=== PATIENT | male | born 1985 | race Caucasian/White ===

== ENCOUNTER 2017-05-22 10:37 | Emergency (ER) | payer SELFPAY ==
[2017-05-22] MEDS ORDERED: CETIRIZINE HCL 10 MG TAB PO ONE (11:29)
[2017-05-22] MEDS ORDERED: predniSONE 20 MG TAB PO ONE (11:29)
--- NOTE | 2017-05-22 12:17 | ED.PDOC ---
History of Present Illness - General Chief Complaint: ENT Problem Stated Complaint: Swollen glands, sore throat, dry cough Time Seen by Provider: 05/22/17 11:29 Source: patient Exam Limitations: no limitations - History of Present Illness Initial Comments: The patient's 31-year-old male presenting to the emergency room secondary to symptoms of the last 8-10 hours of a feeling of swelling in the back of his throat along with some runny nose cough and congestion. The patient has had a difficult time over the last 2-3 weeks with his seasonal allergies. They have not been well controlled. Multiple members of his family have come down with a viral upper respiratory tract infection and it looks like he has as well. He does have some very mild swelling of his uvula. He has some mild hoarseness. He has not had any difficulty breathing. He does have a low-grade fever. No syncope or near-syncope. No chest pain. There is no pseudomembrane formation. Timing/Duration: unsure Severity: moderate Improving Factors: nothing Worsening Factors: nothing Associated Symptoms: cough, fever/chills, malaise Allergies/Adverse Reactions: Allergies NO KNOWN ALLERGY Allergy (Verified 05/22/17 11:21) Home Medications: Ambulatory Orders predniSONE [Prednisone] 20 mg PO DAILY #3 tab 05/22/17 Review of Systems - Review of Systems Constitutional: States: fever, malaise EENTM: States: nose congestion, throat pain Respiratory: States: cough Cardiology: States: no symptoms reported Gastrointestinal/Abdominal: States: no symptoms reported Genitourinary: States: no symptoms reported Musculoskeletal: States: no symptoms reported Skin: States: no symptoms reported Neurological: States: anxiety Endocrine: States: no symptoms reported All other Systems: No Change from Baseline Family Medical History - Family History Father Family History: No Known Living Status: Still Living Physical Exam - Physical Exam General Appearance: Alert, Anxious, No apparent distress Eye Exam: bilateral normal Ears, Nose, Throat: nasal congestion, pharyngeal erythema, other - mild swelling of the uvula Neck: non-tender, full range of motion, supple, normal inspection Respiratory: lungs clear, normal breath sounds, no respiratory distress, no accessory muscle use Cardiovascular/Chest: normal peripheral pulses, regular rate, rhythm, no edema Peripheral Pulses: radial,right: 2+, radial,left: 2+, dorsalis pedis,right: 2+, dorsalis pedis,left: 2+ Gastrointestinal/Abdominal: non tender, soft Rectal Exam: deferred Back Exam: normal inspection Extremity: normal range of motion, non-tender, no pedal edema, no calf tenderness, normal capillary refill 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 This has caused some mild edema of his uvula. no respiratory distress is present. The patient received a dose of prednisone and Zyrtec here. He needs to take Zyrtec nightly for the next 2 weeks. He will be written for prednisone 20 mg daily for the next 3 days. ER warnings were given for any worsening. He has tested negative for strep and flu here today. He needs to keep himself well hydrated. He should follow-up with his primary care doctor towards the end of the week otherwise. Vital Signs - 8 hr 05/22/17 11:18 Temperature 98.0 F Pulse Rate [ 97 H Right Radial] Respiratory 20 Rate Blood Pressure 124/89 [Right Arm] O2 Sat by Pulse 96 Oximetry Departure - Departure Clinical Impression: Viral upper respiratory infection, Uvular edema Allergic rhinitis Qualifiers: Chronicity: acute Allergic rhinitis trigger: unspecified Allergic rhinitis seasonality: seasonal Qualified Code(s): J30.2 - Other seasonal allergic rhinitis Disposition: Discharge to Home or Self Care Departure Forms: ED Discharge - Pt. Copy, Patient Portal Self Enrollment Instructions: DI for Viral Upper Respiratory Infection -- Adult Diet: regular diet Activity: increase activity as tolerated Prescriptions: predniSONE [Prednisone] 20 mg PO DAILY #3 tab Home Medications: Ambulatory Orders predniSONE [Prednisone] 20 mg PO DAILY #3 tab 05/22/17 Additional Instructions: the patient a 31-year-old male presenting to the emergency room with what appears to be a viral upper respiratory tract infection on top of his seasonal allergies. This has caused some mild edema of his uvula. no respiratory distress is present. The patient received a dose of prednisone and Zyrtec here. He needs to take Zyrtec nightly for the next 2 weeks. He will be written for prednisone 20 mg daily for the next 3 days. ER warnings were given for any worsening. He has tested negative for strep and flu here today. He needs to keep himself well hydrated. He should follow-up with his primary care doctor towards the end of the week otherwise.
[2017-05-22 13:16] VITALS: BP 126/81; TEMP 98.3; O2SAT 95
== END 2017-05-22 12:30 | disposition home or self-care (01) ==
LOC: ER 10:37
DX: J06.9 Acute upper respiratory infection, unspecified (principal); J30.2 Other seasonal allergic rhinitis; R60.0 Localized edema
CPT/HCPCS: 87070; 87502; 87651; J7512

== ENCOUNTER 2018-03-12 22:21 | Emergency (ER) | payer SELFPAY ==
[2018-03-12 22:44] VITALS: TEMP 98.8
[2018-03-12] MEDS ORDERED: ACETAMINOPHEN-CAFF-BUTALBITAL 1 EA TAB PO ONE (22:46)
[2018-03-12] MEDS ORDERED: predniSONE 20 MG TAB PO ONE (22:46)
--- NOTE | 2018-03-12 22:49 | ED.PDOC ---
History of Present Illness - General Chief Complaint: Lower Extremity Injury Stated Complaint: right leg swollen Time Seen by Provider: 03/12/18 22:39 Source: patient Exam Limitations: no limitations - History of Present Illness Initial Comments: the patient is a 32-year-old male presenting to emergency room secondary to right knee pain with some locking over the last week. Pain is medial. He does have tenderness to palpation over the anterior tibia medially. No obvious bruising. No definite anterior drawer sign. No anserine bursitis. He is neurovascularly intact distally but does have some swelling mildly distally. There is on obvious palpable swelling of theknee joint sac. Timing/Duration: 1 week Severity: moderate Improving Factors: nothing Worsening Factors: movement Associated Symptoms: denies symptoms Allergies/Adverse Reactions: Allergies NO KNOWN ALLERGY Allergy (Verified 05/22/17 11:21) Home Medications: Ambulatory Orders predniSONE [Prednisone] 20 mg PO DAILY #3 tab 05/22/17 Review of Systems - Review of Systems Constitutional: States: no symptoms reported EENTM: States: no symptoms reported Respiratory: States: no symptoms reported Cardiology: States: no symptoms reported Gastrointestinal/Abdominal: States: no symptoms reported Genitourinary: States: no symptoms reported Musculoskeletal: States: see HPI Skin: States: no symptoms reported Neurological: States: no symptoms reported Endocrine: States: no symptoms reported All other Systems: No Change from Baseline Past Medical History (General) - Patient Medical History Hx Seizures: No Hx Stroke: No Hx Dementia: No Hx Asthma: No Hx of COPD: No Hx Cardiac Disorders: No Hx Congestive Heart Failure: No Hx Pacemaker: No Hx Hypertension: No Hx Thyroid Disease: No Hx Diabetes: No Hx Gastroesophageal Reflux: No Hx Renal Disease: No Hx Cancer: No Hx of HIV: No Hx Hepatitis C: No Hx MRSA: No Surgical History: other - Vaccination History Hx Tetanus, Diphtheria Vaccination: Yes Hx Influenza Vaccination: No Hx Pneumococcal Vaccination: No Immunizations Up to Date: No - Social History Hx Tobacco Use: Yes Hx Chewing Tobacco Use: No Hx Alcohol Use: No Hx Substance Use: No Hx Substance Use Treatment: No Hx Depression: No Feels Threatened In Home Enviroment: No Feels Threatened In a Relationship: No Hx Physical Abuse: No Hx Emotional Abuse: No Hx Suspected Abuse: No - Female History Patient is a Female of Child Bearing Age (10 -59 yrs old): No - Triage Comment ED Triage Comment: unable to bend or use leg due to pain, non swelling edmea noted from knee down to foot Family Medical History - Family History Father Family History: No Known Living Status: Still Living Physical Exam - Physical Exam General Appearance: Alert, Comfortable, No apparent distress Eye Exam: bilateral normal Ears, Nose, Throat: hearing grossly normal, normal pharynx Neck: full range of motion Respiratory: no respiratory distress, no accessory muscle use Cardiovascular/Chest: normal peripheral pulses, other - regular rate. Mild edema to the right lower extremity. 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 he has been instructed how to move to prevent further damage and hopefully allow for healing. If this fails then he can use a hinge knee brace. If that fails then he will need to see orthopedics for possible additional radiological or surgical evaluation. He can use [id number] anti-inflammatory such as Advil or Aleve. Additionally he can use a short compression stocking to help remove any swelling from below the knee. ER warnings are given. Departure - Departure Clinical Impression: Meniscus, medial, derangement Qualifiers: Laterality: right Qualified Code(s): M23.303 - Other meniscus derangements, unspecified medial meniscus, right knee Disposition: Discharge to Home or Self Care Condition: Fair Departure Forms: ED Discharge - Pt. Copy, Patient Portal Self Enrollment Diet: regular diet Activity: no pushing/pulling with affected limb Home Medications: Ambulatory Orders predniSONE [Prednisone] 20 mg PO DAILY #3 tab 05/22/17 Additional Instructions: the patient's a 32-year-old male presenting to emergency room secondary to right knee pain that is most likely due to a meniscal tear to the medial aspect of the right knee, possibly with a mild MCL strain. he has been instructed how to move to prevent further damage and hopefully allow for healing. If this fails then he can use a hinge knee brace. If that fails then he will need to see orthopedics for possible additional radiological or surgical evaluation. He can use [id number] anti-inflammatory such as Advil or Aleve. Additionally he can use a short compression stocking to help remove any swelling from below the knee. ER warnings are given.
[2018-03-12 23:09] VITALS: BP 134/83; O2SAT 96
== END 2018-03-12 22:59 | disposition home or self-care (01) ==
LOC: ER 22:21
DX: M23.303 Other meniscus derangements, unspecified medial meniscus, right knee (principal); Z87.891 Personal history of nicotine dependence

== ENCOUNTER 2018-11-17 05:35 | Emergency (ER) | payer SELFPAY ==
--- NOTE | 2018-11-17 05:46 | ED.PDOC ---
History of Present Illness - General Chief Complaint: Chest Pain/SC Stated Complaint: chest pain Time Seen by Provider: 11/17/18 05:44 Source: patient Exam Limitations: no limitations - History of Present Illness Initial Comments: Slim Cormier 33 y/o male woke up this am with left sided chest tenderness burning and tingling sensation which woke him up.No diaphoresis,non radiating,no cough or wheezing.No chronic medical problems Timing/Duration: 1-3 hours Severity/Quality: burning Location: central Chest Pain Radiation: no radiation Activities at Onset: sleep Prior Chest Pain/Cardiac Workup: no prior chest pain Improving Factors: nothing Aspirin Treatment Today: 81 mg x 4 Associated Symptoms: denies symptoms Allergies/Adverse Reactions: Allergies Morphine Adverse Reaction (Verified 11/17/18 05:53) Review of Systems - Review of Systems Constitutional: States: no symptoms reported EENTM: States: no symptoms reported Respiratory: States: no symptoms reported Cardiology: States: see HPI Gastrointestinal/Abdominal: States: no symptoms reported Genitourinary: States: no symptoms reported Musculoskeletal: States: no symptoms reported Skin: States: no symptoms reported Neurological: States: no symptoms reported All other Systems: Reviewed and Negative, No Change from Baseline Past Medical History (General) - Patient Medical History Hx Seizures: No Hx Stroke: No Hx Dementia: No Hx Asthma: No Hx of COPD: No Hx Cardiac Disorders: No Hx Congestive Heart Failure: No Hx Pacemaker: No Hx Hypertension: No Hx Thyroid Disease: No Hx Diabetes: No Hx Gastroesophageal Reflux: No Hx Renal Disease: No Hx Cancer: No Hx of HIV: No Hx Hepatitis C: No Hx MRSA: No Surgical History: other - left forearm ORIF - Vaccination History Hx Tetanus, Diphtheria Vaccination: Yes Hx Influenza Vaccination: No Hx Pneumococcal Vaccination: No - Social History Hx Tobacco Use: Yes Hx Chewing Tobacco Use: No Hx Alcohol Use: No Hx Substance Use: No Hx Substance Use Treatment: No Hx Depression: No Hx Physical Abuse: No Hx Emotional Abuse: No Hx Suspected Abuse: No Family Medical History - Family History Father Family History: No Known Living Status: Still Living Hx Cardiac Disease: Yes - dad Hx Family Diabetes: Yes - dad Physical Exam - Physical Exam General Appearance: Alert, Comfortable, No apparent distress Eyes, Ears, Nose, Throat Exam: normal ENT inspection, pharynx normal Neck: supple, normal inspection Respiratory: lungs clear, normal breath sounds, no respiratory distress, other - rib cage tenderness left side chest Cardiovascular/Chest: normal peripheral pulses, regular rate, rhythm, no murmur Peripheral Pulses: radial,right: 2+, radial,left: 2+ Gastrointestinal/Abdominal: non tender, soft Extremity: no pedal edema, no calf tenderness Neurologic: alert, oriented x 3 Skin Exam: normal color, warm/dry Progress - Progress Progress: 11/17/18 06:34 Vital Signs - 8 hr 11/17/18 05:46 Temperature 97.2 F L Pulse Rate [ 81 monitor] Respiratory 20 Rate Blood Pressure 154/97 [Left Arm] O2 Sat by Pulse 98 Oximetry - EKG/XRAY/CT EKG: Sinus, no ST T wave changes Comments: HR-78 XRAY: chest - no acute abnormalities noted Departure - Departure Clinical Impression: Chest pain Qualifiers: Chest pain type: unspecified Qualified Code(s): R07.9 - Chest pain, unspecified Disposition: Discharge to Home or Self Care Condition: Fair Departure Forms: ED Discharge - Pt. Copy, Patient Portal Self Enrollment Instructions: DI for Chest Pain Addendum entered and electronically signed by Jerrell Barajas MD 11/17/18 09:29: ED Addendum - ED Addendum Addendum: Laboratory Tests 11/17/18 11/17/18 11/17/18 06:00 06:20 07:35 WBC 9.7 RBC 5.10 Hgb 15.7 Hct 45.4 MCV 89.0 MCH 30.7 MCHC 34.5 RDW 12.7 Plt Count 260 MPV 8.1 Absolute Neuts (auto) 6.00 Absolute Lymphs (auto) 2.80 Absolute Monos (auto) 0.60 Absolute Eos (auto) 0.20 Absolute Basos (auto) 0.10 Neutrophils % 61.8 Lymphocytes % 28.7 Monocytes % 6.5 Eosinophils % 2.3 Basophils % 0.7 PT 9.1 INR 0.91 PTT (SP) 23.6 D-Dimer, Quantitative 0.23 Sodium 141 Potassium 4.1 Chloride 106 Carbon Dioxide 27 Anion Gap 12.1 BUN 12 Creatinine 0.77 BUN/Creatinine Ratio 15.6 Random Glucose 92 Serum Osmolality 280.7 Calcium 9.4 Magnesium 2.1 Total Bilirubin 0.4 Direct Bilirubin < 0.1 Indirect Bilirubin 0.3 AST 17 ALT 19 Alkaline Phosphatase 99 Creatine Kinase 91 CK-MB (CK-2) 2.3 CK-MB (CK-2) % Not Reportable Troponin I < 0.02 Serum Total Protein 6.9 Albumin 3.9 Urine Color Yellow Urine Appearance Clear Urine pH 6.0 Ur Specific Chappell 1.020 Urine Protein Negative Urine Glucose (UA) Negative Urine Ketones Negative Urine Blood Negative Urine Nitrite Negative Urine Bilirubin Negative Urine Urobilinogen 0.2 Ur Leukocyte Esterase Negative Urine RBC 0-1 Urine WBC 1-3 Ur Epithelial Cells 0 Urine Bacteria Rare Urine Mucus Trace 11/17/18 08:50 WBC RBC Hgb Hct MCV MCH MCHC RDW Plt Count MPV Absolute Neuts (auto) Absolute Lymphs (auto) Absolute Monos (auto) Absolute Eos (auto) Absolute Basos (auto) Neutrophils % Lymphocytes % Monocytes % Eosinophils % Basophils % PT INR PTT (SP) D-Dimer, Quantitative Sodium Potassium Chloride Carbon Dioxide Anion Gap BUN Creatinine BUN/Creatinine Ratio Random Glucose Serum Osmolality Calcium Magnesium Total Bilirubin Direct Bilirubin Indirect Bilirubin AST ALT Alkaline Phosphatase Creatine Kinase CK-MB (CK-2) CK-MB (CK-2) % Troponin I < 0.02 Serum Total Protein Albumin Urine Color Urine Appearance Urine pH Ur Specific Chappell Urine Protein Urine Glucose (UA) Urine Ketones Urine Blood Urine Nitrite Urine Bilirubin Urine Urobilinogen Ur Leukocyte Esterase Urine RBC Urine WBC Ur Epithelial Cells Urine Bacteria Urine Mucus EKG showed NSR with no ST changes nor T wave inversions. No LBBB. Troponin x 2 negative. Patient's symptoms improved. No likely a NSTEMI. I recommended a treadmill stress test. Patient declined a GI cocktail. Care instructions given. E.R. warnings given. Questions were elicited and answered. Patient voiced understanding and agreement with the plan. Departure - Departure Clinical Impression: Chest pain Qualifiers: Chest pain type: unspecified Qualified Code(s): R07.9 - Chest pain, unspecified Disposition: Discharge to Home or Self Care Condition: Fair Departure Forms: ED Discharge - Pt. Copy, Patient Portal Self Enrollment Instructions: DI for Chest Pain
--- NOTE | 2018-11-17 06:03 | RAD ---
EXAM: XR Chest, 1 View CLINICAL HISTORY: The patient is 33 years old and is Male; pain TECHNIQUE: Frontal view of the chest. COMPARISON: No relevant prior studies available. FINDINGS: LUNGS: Unremarkable. No consolidation. PLEURAL SPACE: Unremarkable. No pneumothorax. HEART: No significant enlargement of the cardiac silhouette. MEDIASTINUM: Unremarkable. BONES/JOINTS: No acute osseous findings. IMPRESSION: No acute findings visualized within the chest. Electronically signed by: Vania Bansal MD 11/17/2018 6:02 AM CDT
[2018-11-17 09:45] VITALS: BP 121/81; TEMP 97.6; O2SAT 97
== END 2018-11-17 09:42 | disposition home or self-care (01) ==
LOC: ER 05:35
DX: R07.9 Chest pain, unspecified (principal); Z87.891 Personal history of nicotine dependence; Z88.5 Allergy status to narcotic agent

== ENCOUNTER 2019-04-15 20:44 | Emergency (ER) | payer SELFPAY | END 2019-04-15 21:40 | disposition left against medical advice (07) | LOC: ER 20:44 | DX: H92.09 Otalgia, unspecified ear (principal); Z53.21 Procedure and treatment not carried out due to patient leaving prior to being seen by health care provider ==

== ENCOUNTER 2019-04-15 23:58 | Emergency (ER) | payer SELFPAY ==
[2019-04-16] MEDS ORDERED: HYDROcodone 5MG/APAP 325MG 1 EA TAB PO ONE (00:13)
[2019-04-16] MEDS ORDERED: DEXAMETHASONE INJ 10 MG/ML VIAL IM ONE (00:13)
[2019-04-16] MEDS ORDERED: AMOXICILLIN & POT CLAVULANATE 875 MG TAB PO ONE (00:13)
--- NOTE | 2019-04-16 00:16 | ED.PDOC ---
History of Present Illness - General Chief Complaint: ENT Problem Stated Complaint: ear pain Time Seen by Provider: 04/16/19 00:12 Source: patient Exam Limitations: no limitations Additional Information: 33yo M no PMH with left ear pain. Reports congestion over the past several days with new otalgia that started today. Pain is severe, non-radiating, with no alleviating/ameliorating factors. No other reported symptoms including fever, vomiting, headache, neck stiffness, otorrhea. - History of Present Illness Allergies/Adverse Reactions: Allergies Morphine Adverse Reaction (Verified 11/17/18 05:53) Home Medications: Ambulatory Orders Amoxicillin & Pot Clavulanate [Augmentin Tab] 875 mg PO BID 7 Days #14 tab 03/20 01/05 Naproxen [EC-Naproxen] 500 mg PO Q12HR PRN 10 Days #20 tab 04/16/19 Review of Systems - Review of Systems EENTM: States: ear pain Respiratory: States: cough All other Systems: Reviewed and Negative Past Medical History (General) - Patient Medical History Hx Seizures: No Hx Stroke: No Hx Dementia: No Hx Asthma: No Hx of COPD: No Hx Cardiac Disorders: No Hx Congestive Heart Failure: No Hx Pacemaker: No Hx Hypertension: No Hx Thyroid Disease: No Hx Diabetes: No Hx Gastroesophageal Reflux: No Hx Renal Disease: No Hx Cancer: No Hx of HIV: No Hx Hepatitis C: No Hx MRSA: No - Vaccination History Hx Tetanus, Diphtheria Vaccination: Yes Hx Influenza Vaccination: No Hx Pneumococcal Vaccination: No - Social History Hx Tobacco Use: Yes Hx Chewing Tobacco Use: No Hx Alcohol Use: No Hx Substance Use: No Hx Substance Use Treatment: No Hx Depression: No Hx Physical Abuse: No Hx Emotional Abuse: No Hx Suspected Abuse: No Family Medical History - Family History Father Family History: No Known Living Status: Still Living Hx Cardiac Disease: Yes - dad Hx Family Diabetes: Yes - dad Physical Exam - Physical Exam General Appearance: Alert, Anxious, No apparent distress Eye Exam: bilateral normal Ear Exam: bilateral ear: auricle normal, canal normal, TM red, TM bulging, erythema Nasal Exam: normal inspection Throat Exam: normal mouth inspection, pharynx normal Neck: non-tender, full range of motion, supple, normal inspection Cardiovascular/Respiratory: regular rate, rhythm, no M/R/G, normal peripheral pulses 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 No signs of auricular proptosis or discharge to indicate (malignant) otitis externa. No trismus or odontogenic infection noted. No purulent nasal discharge to indicate sinusitis. Plan for outpatient treatment. ED warnings given and outpatient f/u with PCP and/or ENT. Moses Solares MD #[id number] 04/16/19 00:22 Departure - Departure Clinical Impression: Otitis media Qualifiers: Otitis media type: suppurative Chronicity: acute Laterality: bilateral Recurrence: not specified as recurrent Spontaneous tympanic membrane rupture: without spontaneous rupture Qualified Code(s): H66.003 - Acute suppurative otitis media without spontaneous rupture of ear drum, bilateral Disposition: Discharge to Home or Self Care Condition: Fair Departure Forms: ED Discharge - Pt. Copy, Patient Portal Self Enrollment Instructions: DI for Ear Pain-Adult Diet: resume usual diet Activity: increase activity as tolerated Referrals: MANDY HARP [Referring] - 1-2 Weeks Prescriptions: Naproxen [EC-Naproxen] 500 mg PO Q12HR PRN 10 Days #20 tab PRN Reason: Mild To Moderate Pain Amoxicillin & Pot Clavulanate [Augmentin Tab] 875 mg PO BID 7 Days #14 tab Home Medications: Ambulatory Orders Amoxicillin & Pot Clavulanate [Augmentin Tab] 875 mg PO BID 7 Days #14 tab 04/16/19 Naproxen [EC-Naproxen] 500 mg PO Q12HR PRN 10 Days #20 tab 04/16/19
[2019-04-16 00:36] VITALS: BP 153/109; TEMP 98.9; O2SAT 96
== END 2019-04-16 00:36 | disposition home or self-care (01) ==
LOC: ER 23:58
DX: H66.003 Acute suppurative otitis media without spontaneous rupture of ear drum, bilateral (principal); Z88.5 Allergy status to narcotic agent; Z87.891 Personal history of nicotine dependence

== ENCOUNTER 2019-07-27 21:02 | Emergency (ER) | payer SELFPAY ==
[2019-07-27 21:32] VITALS: O2SAT 98
--- NOTE | 2019-07-27 21:37 | RAD ---
EXAM: AP CHEST RADIOGRAPH CLINICAL INDICATION: Respiratory abnormality. COMPARISON: Compared to the chest radiograph of November 17, 2018. FINDINGS: Cardiac size remains normal. Lungs are clear. No pleural effusions. No pneumothorax, pneumomediastinum or free peritoneal gas. No hilar or mediastinal lymphadenopathy. No mediastinal widening. Bones are intact on this single view. IMPRESSION: Normal portable AP chest radiograph. Electronically signed by: Irving Marks MD 07/27/2019 9:35 PM CDT
[2019-07-27] MEDS ORDERED: PENICILLIN BENZATHINE 1.2 MU 1.2 MU/2 ML SYG IM ONE (21:45)
[2019-07-27] MEDS ORDERED: ACETAMINOPHEN 325 MG TAB PO ONE (21:45)
[2019-07-27] MEDS ORDERED: ACETAMINOPHEN 325 MG TAB ONE (21:45)
--- NOTE | 2019-07-27 22:19 | ED.PDOC ---
History of Present Illness - General Chief Complaint: ENT Problem Stated Complaint: sore throat, mcgee,diarrhea Time Seen by Provider: 07/27/19 21:18 Source: patient Exam Limitations: no limitations - History of Present Illness Initial Comments: The patient is a 34-year-old male presented emergency room secondary to a couple of episodes of nausea vomiting along with a sore throat and fever and a mild feeling of shortness of breath for the last 2 days. The patient does work at [employer]. No chest pain. No syncope or near syncope. Mild diarrhea. Timing/Duration: other - 2 days Severity: moderate Improving Factors: nothing Worsening Factors: nothing Associated Symptoms: cough, loss of appetite, malaise, nausea/vomiting Allergies/Adverse Reactions: Allergies Morphine Adverse Reaction (Verified 11/17/18 05:53) Home Medications: Ambulatory Orders Amoxicillin & Pot Clavulanate [Augmentin Tab] 875 mg PO BID 7 Days #14 tab 04/16/19 Naproxen [EC-Naproxen] 500 mg PO Q12HR PRN 10 Days #20 tab 04/16/19 Ondansetron Odt [Zofran ODT] 4 mg PO Q8HR PRN #5 tab 07/27/19 Review of Systems - Review of Systems Constitutional: States: fever, malaise EENTM: States: throat pain. Denies: nose congestion Respiratory: States: cough, short of breath - Mild Cardiology: States: no symptoms reported Gastrointestinal/Abdominal: States: diarrhea, nausea, vomiting Genitourinary: States: no symptoms reported Musculoskeletal: States: no symptoms reported - Generalized body aches Skin: States: no symptoms reported Neurological: States: no symptoms reported Endocrine: States: no symptoms reported All other Systems: No Change from Baseline Past Medical History (General) - Patient Medical History Hx Seizures: No Hx Stroke: No Hx Dementia: No Hx Asthma: No Hx of COPD: No Hx Cardiac Disorders: No Hx Congestive Heart Failure: No Hx Pacemaker: No Hx Hypertension: No Hx Thyroid Disease: No Hx Diabetes: No Hx Gastroesophageal Reflux: No Hx Renal Disease: No Hx Cancer: No Hx of HIV: No Hx Hepatitis C: No Hx MRSA: No Surgical History: no surgical history - Vaccination History Hx Tetanus, Diphtheria Vaccination: Yes Hx Influenza Vaccination: No Hx Pneumococcal Vaccination: No Immunizations Up to Date: Yes - Social History Hx Tobacco Use: Yes Hx Chewing Tobacco Use: No Hx Alcohol Use: No Hx Substance Use: No Hx Substance Use Treatment: No Hx Depression: No Feels Threatened In Home Enviroment: No Feels Threatened In a Relationship: No Hx Physical Abuse: No Hx Emotional Abuse: No Hx Suspected Abuse: No - Activities of Daily Living Hospice Agency (if applicable):: None - Female History Patient is a Female of Child Bearing Age (10 -59 yrs old): No Family Medical History - Family History Father Family History: No Known Living Status: Still Living Hx Cardiac Disease: Yes - dad Hx Family Diabetes: Yes - dad Physical Exam - Physical Exam General Appearance: Alert, No apparent distress Eye Exam: bilateral normal Ears, Nose, Throat: hearing grossly normal, pharyngeal erythema Neck: full range of motion, supple Respiratory: lungs clear, normal breath sounds, no respiratory distress, no accessory muscle use Cardiovascular/Chest: normal peripheral pulses, regular rate, rhythm, no edema Peripheral Pulses: radial,right: 2+, radial,left: 2+ Gastrointestinal/Abdominal: non tender - Obese, soft Rectal Exam: deferred Back Exam: no CVA tenderness, no vertebral tenderness Extremity: non-tender, normal inspection, no pedal edema, normal capillary refill Neurologic: rn acute care II-XII nml as tested, alert, normal mood/affect, oriented x 3 Skin Exam: normal color Comments: Vital Signs - 24 hr 07/27/19 21:27 Temperature 99.2 F Pulse Rate [ 102 H monitor] Respiratory 18 Rate Blood Pressure 197/121 [Left Arm] O2 Sat by Pulse 98 Oximetry Repeat blood pressure is 122/75 Progress - Progress Progress: 07/27/19 22:19 The patient is a 34-year-old male presents emergency room secondary to symptoms of a sore throat and shortness of breath along with some GI symptoms for the last couple of days. The patient has tested positive for strep throat. He is being dosed with Bicillin LA. He needs to avoid work for at least 3 days and has been given precautions as to how not to pass this long. He is to keep him up self well-hydrated. He will be written for a small prescription for Zofran to use for any nausea. ER warnings are given. [id number] [id number] - Results/Orders Results/Orders: Rapid flu is negative. Rapid strep is positive. Chest x-ray appears benign. Departure - Departure Clinical Impression: Streptococcal sore throat Disposition: Discharge to Home or Self Care Condition: Fair Departure Forms: ED Discharge - Pt. Copy, Patient Portal Self Enrollment Instructions: Sore Throat, Adult (DC) Diet: bland diet Activity: increase activity as tolerated Prescriptions: Ondansetron Odt [Zofran ODT] 4 mg PO Q8HR PRN #5 tab PRN Reason: Nausea--Moderate Home Medications: Ambulatory Orders Amoxicillin & Pot Clavulanate [Augmentin Tab] 875 mg PO BID 7 Days #14 tab 04/16/19 Naproxen [EC-Naproxen] 500 mg PO Q12HR PRN 10 Days #20 tab 04/16/19 Ondansetron Odt [Zofran ODT] 4 mg PO Q8HR PRN #5 tab 07/27/19 Additional Instructions: The patient is a 34-year-old male presents emergency room secondary to symptoms of a sore throat and shortness of breath along with some GI symptoms for the last couple of days. The patient has tested positive for strep throat. He is being dosed with Bicillin LA. He needs to avoid work for at least 3 days and has been given precautions as to how not to pass this long. He is to keep him up self well-hydrated. He will be written for a small prescription for Zofran to use for any nausea. ER warnings are given.
[2019-07-27 22:34] VITALS: BP 122/75; TEMP 97.8
== END 2019-07-27 22:35 | disposition home or self-care (01) ==
LOC: ER 21:02
DX: J02.0 Streptococcal pharyngitis (principal); R11.2 Nausea with vomiting, unspecified; F17.200 Nicotine dependence, unspecified, uncomplicated
CPT/HCPCS: 71045; 87502; 87880; J0561

== ENCOUNTER 2019-09-03 22:43 | Emergency (ER) | payer SELFPAY ==
[2019-09-03] MEDS: ONDANSETRON 4 MG TAB PO ONE (23:17)
[2019-09-03] MEDS: traMADol HCL 50 MG TAB PO ONE (23:17)
--- NOTE | 2019-09-03 23:18 | ED.PDOC ---
History of Present Illness - General Chief Complaint: Lower Extremity Injury Stated Complaint: pain and swelling to left lower foot Time Seen by Provider: 09/03/19 23:02 - History of Present Illness Initial Comments: 34-year-old male presents with swelling, redness and pain on the top of left foot that is been present for a week, slowly progressing, after presumed spider bite. Has attempted [id number] treatment, elevation without much improvement. Denies fevers, is still able to walk. Allergies/Adverse Reactions: Allergies Morphine Adverse Reaction (Verified 11/17/18 05:53) Home Medications: Ambulatory Orders Amoxicillin & Pot Clavulanate [Augmentin Tab] 875 mg PO BID 7 Days #14 tab 04/16/19 Naproxen [EC-Naproxen] 500 mg PO Q12HR PRN 10 Days #20 tab 04/16/19 Ondansetron Odt [Zofran ODT] 4 mg PO Q8HR PRN #5 tab 07/27/19 Cephalexin Monohydrate [Keflex] 500 mg PO TID #21 cap 09/03/19 Sulfamethoxazole-Trimethoprim [Bactrim Ds 800-160 mg] 1 tab PO BID #14 tab 09/03/19 Tramadol HCl [Ultram] 50 mg PO Q6H PRN #15 tab 09/03/19 Review of Systems - Review of Systems Review of Systems: 09/03/19 23:26 General: Denies generalized weakness, fever, arthralgia/myalgia HEENT: Denies sore throat, rhinorrhea Cardiovascular: Denies chest pain, palpitations Respiratory: Denies SOB, cough Gastrointestinal: Denies abdominal pain, vomiting, diarrhea : Denies dysuria, frequency Musculoskeletal: has extremity pain, extremity swelling Integument: has erythema, swelling, pain of L foot, as in HPI Neuro: Denies focal weakness or numbness Psych: Denies depression, hallucinations. 09/03/19 23:30 Past Medical History (General) - Patient Medical History Hx Seizures: No Hx Stroke: No Hx Dementia: No Hx Asthma: No Hx of COPD: No Hx Cardiac Disorders: No Hx Congestive Heart Failure: No Hx Pacemaker: No Hx Hypertension: No Hx Thyroid Disease: No Hx Diabetes: No Hx Gastroesophageal Reflux: No Hx Renal Disease: No Hx Cancer: No Hx of HIV: No Hx Hepatitis C: No Hx MRSA: No Surgical History: other - Vaccination History Hx Tetanus, Diphtheria Vaccination: Yes Hx Influenza Vaccination: Yes Hx Pneumococcal Vaccination: Yes Immunizations Up to Date: Yes - Social History Hx Tobacco Use: Yes Hx Chewing Tobacco Use: No Hx Alcohol Use: No Hx Substance Use: No Hx Substance Use Treatment: No Hx Depression: No Feels Threatened In Home Enviroment: No Feels Threatened In a Relationship: No Hx Physical Abuse: No Hx Emotional Abuse: No Hx Suspected Abuse: No - Activities of Daily Living Hospice Agency (if applicable):: None - Female History Patient is a Female of Child Bearing Age (10 -59 yrs old): No - Triage Comment ED Triage Comment: pain and swelling started 08/31/19, today got worse Family Medical History - Family History Father Family History: No Known Living Status: Still Living Hx Cardiac Disease: Yes - dad Hx Family Diabetes: Yes - dad Physical Exam - Physical Exam Comments: General Appearance: Patient is awake and alert. Skin: Warm and dry. No diaphoresis. No rash or other lesions. Head: Normocephalic/atraumatic. Eyes: PERRL, lids, conjunctiva and sclera unremarkable. EOMI intact. ENT: No nasal discharge. Oropharynx. Without erythema, exudate, lesions. Moist mucous membranes. Neck: Supple. No LAD. No tenderness. No JVD noted. Respiratory: Normal rate and effort. Breath sounds clear bilaterally. Cardiovascular: Regular rate. Heart sounds normal. No murmur. GI: Abdomen soft, non-distended and non-tender. No rebound/guarding. Bowel sounds normal. Back: No tenderness Musculoskeletal: Extremities- L foot dorsal surface erythematous, warm. no fluctuance. generalized swelling, no skin break between toes. o/w, MS Normal range of motion. No effusion, cyanosis, edema. Neurological: Alert. No facial palsy. Speech clear. Gag intact. No motor deficit, str symmetric. No sensory deficit. Progress - Progress Progress: 09/03/19 23:29 Vital Signs - 24 hr 09/03/19 22:50 Temperature 98.7 F Pulse Rate [ 96 H monitor] Respiratory 18 Rate Blood Pressure 162/101 [Left Arm] O2 Sat by Pulse 98 Oximetry 09/03/19 23:29 Safety Stop Patient feels better after meds. VS, exam remain reassuring. I have discussed findings, diff dx, plan of care, need for follow-up w Dr Ramos is not improving, and reasons to return to the ED. Safety Stop (Diagnostic Time-Out): Tachycardia: No Diagnostic Studies: Reviewed Diagnostic Certainty: moderate Patient/family feels safe with discharge: Yes Departure - Departure Clinical Impression: Cellulitis Time of Disposition: 23:15 Disposition: Discharge to Home or Self Care Condition: Good Departure Forms: ED Discharge - Pt. Copy, Patient Portal Self Enrollment Instructions: Cellulitis (Skin Infection), Adult (DC) Diet: resume usual diet Activity: increase activity as tolerated Referrals: Maury Ramos MD [Active Staff] - 1-5 Days Prescriptions: Cephalexin Monohydrate [Keflex] 500 mg PO TID #21 cap Sulfamethoxazole-Trimethoprim [Bactrim Ds 800-160 mg] 1 tab PO BID #14 tab Tramadol HCl [Ultram] 50 mg PO Q6H PRN #15 tab PRN Reason: Pain Home Medications: Ambulatory Orders Amoxicillin & Pot Clavulanate [Augmentin Tab] 875 mg PO BID 7 Days #14 tab 04/16/19 Naproxen [EC-Naproxen] 500 mg PO Q12HR PRN 10 Days #20 tab 04/16/19 Ondansetron Odt [Zofran ODT] 4 mg PO Q8HR PRN #5 tab 07/27/19 Cephalexin Monohydrate [Keflex] 500 mg PO TID #21 cap 09/03/19 Sulfamethoxazole-Trimethoprim [Bactrim Ds 800-160 mg] 1 tab PO BID #14 tab 09/03/19 Tramadol HCl [Ultram] 50 mg PO Q6H PRN #15 tab 09/03/19 Comments: Saúl Breaux MD Emergency Medicine #[id number]
[2019-09-03] MEDS: SULFA/TRIMETH TAB 800/160 (ER) 1 EA TAB PO ONE (23:23)
[2019-09-03] MEDS: CEPHALEXIN 500MG CAP (ER DISP) PO ONE (23:23)
[2019-09-03 23:45] VITALS: BP 133/86; TEMP 98.3; O2SAT 97
== END 2019-09-03 23:39 | disposition home or self-care (01) ==
LOC: ER 22:43
DX: L03.116 Cellulitis of left lower limb (principal); M79.672 Pain in left foot; F17.200 Nicotine dependence, unspecified, uncomplicated

== ENCOUNTER 2019-10-11 19:56 | Emergency (ER) | payer SELFPAY ==
--- NOTE | 2019-10-11 20:22 | ED.PDOC ---
History of Present Illness - General Chief Complaint: Respiratory Problem Time Seen by Provider: 10/11/19 20:11 Source: patient, RN notes reviewed, Vital Signs reviewed Exam Limitations: no limitations - History of Present Illness Comments: 34M with no significant past medical history presents to the ED for evaluation of cough and fever. states that his symptoms started today. Complains of cough productive of green mucous. He has associated fever and body aches, vomiting and diarrhea. He has also noticed loss of taste. He denies any known sick contacts or any known covid exposure. No other complaints at this time. Allergies/Adverse Reactions: Allergies Morphine Adverse Reaction (Verified 11/17/18 05:53) Home Medications: Ambulatory Orders Amoxicillin & Pot Clavulanate [Augmentin Tab] 875 mg PO BID 7 Days #14 tab 04/16/19 Naproxen [EC-Naproxen] 500 mg PO Q12HR PRN 10 Days #20 tab 04/16/19 Ondansetron Odt [Zofran ODT] 4 mg PO Q8HR PRN #5 tab 07/27/19 Cephalexin Monohydrate [Keflex] 500 mg PO TID #21 cap 09/03/19 Sulfamethoxazole-Trimethoprim [Bactrim Ds 800-160 mg] 1 tab PO BID #14 tab 09/03/19 Tramadol HCl [Ultram] 50 mg PO Q6H PRN #15 tab 09/03/19 Azithromycin Tab [Zithromax Tab] 250 mg PO DAILY #6 tab 10/11/19 Review of Systems - Review of Systems Constitutional: States: chills, fever, malaise EENTM: States: nose congestion Respiratory: States: cough, short of breath Cardiology: Denies: chest pain, palpitations Gastrointestinal/Abdominal: States: diarrhea, nausea, vomiting. Denies: abdominal pain Genitourinary: Denies: dysuria, frequency, hematuria Musculoskeletal: States: no symptoms reported Skin: States: no symptoms reported Neurological: States: no symptoms reported Endocrine: States: no symptoms reported Hematologic/Lymphatic: States: no symptoms reported All other Systems: Reviewed and Negative Past Medical History (General) - Patient Medical History Hx Seizures: No Hx Stroke: No Hx Dementia: No Hx Asthma: No Hx of COPD: No Hx Cardiac Disorders: No Hx Congestive Heart Failure: No Hx Pacemaker: No Hx Hypertension: No Hx Thyroid Disease: No Hx Diabetes: No Hx Gastroesophageal Reflux: No Hx Renal Disease: No Hx Cancer: No Hx of HIV: No Hx Hepatitis C: No Hx MRSA: No - Vaccination History Hx Tetanus, Diphtheria Vaccination: Yes Hx Influenza Vaccination: Yes Hx Pneumococcal Vaccination: Yes - Social History Hx Tobacco Use: Yes Hx Chewing Tobacco Use: No Hx Alcohol Use: No Hx Substance Use: No Hx Substance Use Treatment: No Hx Depression: No Hx Physical Abuse: No Hx Emotional Abuse: No Hx Suspected Abuse: No Family Medical History - Family History Father Family History: No Known Living Status: Still Living Hx Cardiac Disease: Yes - dad Hx Family Diabetes: Yes - dad Physical Exam - Physical Exam General Appearance: Comfortable, No apparent distress ENT Exam: normal ENT inspection, hearing grossly normal, pharynx normal Neck: non-tender, full range of motion Respiratory: lungs clear, normal breath sounds, no respiratory distress, no accessory muscle use Cardiovascular/Chest: normal peripheral pulses, regular rate, rhythm Gastrointestinal/Abdominal: non tender, soft Extremity: normal range of motion, no pedal edema Neurologic: no motor/sensory deficits, alert, normal mood/affect, oriented x 3 Skin Exam: normal color Progress - Progress Progress: 10/11/19 20:25 Patient presents with cough, fever, body aches and loss of taste. Will test for COVID, CXR for possible pneumonia. 10/11/19 20:46 CXR shows infiltrate vs atelectasis. Will treat with antibiotics. Discussed quarantine until COVID test results. - EKG/XRAY/CT Xray Comments: Linear infiltrate vs. atelectasis Departure - Departure Clinical Impression: Suspected COVID-19 virus infection Pneumonia Qualifiers: Pneumonia type: due to unspecified organism Laterality: left Lung location: unspecified part of lung Qualified Code(s): J18.9 - Pneumonia, unspecified organism Time of Disposition: 20:49 Disposition: Discharge to Home or Self Care Condition: Excellent Departure Forms: ED Discharge - Pt. Copy, Patient Portal Self Enrollment Instructions: DI for Pneumonia -- Adult, Coronavirus Disease 2019 (COVID-19) Diet: resume usual diet Activity: increase activity as tolerated Referrals: TORIBIO MAC [Primary Care Provider] - 1-2 Weeks Prescriptions: Azithromycin Tab [Zithromax Tab] 250 mg PO DAILY #6 tab Home Medications: Ambulatory Orders Amoxicillin & Pot Clavulanate [Augmentin Tab] 875 mg PO BID 7 Days #14 tab 04/16/19 Naproxen [EC-Naproxen] 500 mg PO Q12HR PRN 10 Days #20 tab 04/16/19 Ondansetron Odt [Zofran ODT] 4 mg PO Q8HR PRN #5 tab 07/27/19 Cephalexin Monohydrate [Keflex] 500 mg PO TID #21 cap 09/03/19 Sulfamethoxazole-Trimethoprim [Bactrim Ds 800-160 mg] 1 tab PO BID #14 tab 09/03/19 Tramadol HCl [Ultram] 50 mg PO Q6H PRN #15 tab 09/03/19 Azithromycin Tab [Zithromax Tab] 250 mg PO DAILY #6 tab 10/11/19
[2019-10-11 20:30] VITALS: O2SAT 98
--- NOTE | 2019-10-11 20:40 | RAD ---
EXAM DESCRIPTION: Chest,1 View CLINICAL HISTORY: cough, fever COMPARISON: July 27, 2019 TECHNIQUE: One view radiograph of the chest FINDINGS: Lung volumes are shallow with associated bronchovascular crowding. Cardiac silhouette shows upper limits of normal heart size and central pulmonary vascularity. Subtle linear opacities in the left retrocardiac region most compatible with atelectasis. Early infiltrate cannot be entirely excluded. Right lung shows no confluent infiltrates. Costophrenic angles are sharp. No pneumothorax. No acute osseous abnormality. IMPRESSION: 1. Shallow lung volumes with associated bronchovascular crowding. 2. Subtle linear opacities left retrocardiac region most compatible with atelectasis. Early infiltrate cannot be entirely excluded. Electronically signed by: Dougie Linares MD 10/11/2019 8:39 PM CDT
[2019-10-11 21:12] VITALS: BP 137/94; TEMP 98.2
== END 2019-10-11 21:05 | disposition home or self-care (01) ==
LOC: ER 19:56
DX: J18.9 Pneumonia, unspecified organism (principal); Z20.828 Contact with and (suspected) exposure to other viral communicable diseases; F17.200 Nicotine dependence, unspecified, uncomplicated
CPT/HCPCS: 71045; U0002

== ENCOUNTER 2020-02-06 07:58 | Emergency (ER) | payer SELFPAY ==
[2020-02-06 08:11] VITALS: TEMP 97.9
[2020-02-06] MEDS ORDERED: ONDANSETRON ODT 8 MG TAB SL ONE (08:37)
[2020-02-06] MEDS ORDERED: KETOROLAC TROMETHAMINE INJ 30 MG/ML VIAL IM ONE (08:37)
--- NOTE | 2020-02-06 09:08 | RAD ---
Study: Single Frontal Radiograph of the Chest. Indication:cough Comparison: October 11, 2019 Impression: Cardiomegaly without failure. The lungs are clear without consolidation, pleural effusion, or pneumothorax. No acute osseous abnormality. Electronically signed by: Gurmeet Jaimes MD 02/06/2020 9:07 AM CDT
--- NOTE | 2020-02-06 10:00 | ED.PDOC ---
History of Present Illness - General Chief Complaint: Headache Stated Complaint: YOUNG,cough,vomiting Time Seen by Provider: 02/06/20 08:36 Source: patient, RN notes reviewed, Vital Signs reviewed Exam Limitations: no limitations - History of Present Illness Initial Comments: Patient is a 34-year-old white male who presents with complaints of headache, sore throat, nausea and vomiting, weakness and cough. Cough is nonproductive. The headache is throbbing in nature. It is worse after coughing. Nothing seems to make it better. No radiation of the pain. Patient denies any neck pain, blurry vision, dizziness, chest pain, shortness of breath. Timing/Duration: constant, other - 3 days Severity: moderate Improving Factors: nothing Worsening Factors: other - Coughing Associated Symptoms: cough, headaches, nausea/vomiting Allergies/Adverse Reactions: Allergies Morphine Adverse Reaction (Verified 11/17/18 05:53) Home Medications: Ambulatory Orders Amoxicillin & Pot Clavulanate [Augmentin Tab] 875 mg PO BID 7 Days #14 tab 04/16/19 Naproxen [EC-Naproxen] 500 mg PO Q12HR PRN 10 Days #20 tab 04/16/19 Ondansetron Odt [Zofran ODT] 4 mg PO Q8HR PRN #5 tab 07/27/19 Cephalexin Monohydrate [Keflex] 500 mg PO TID #21 cap 09/03/19 Sulfamethoxazole-Trimethoprim [Bactrim Ds 800-160 mg] 1 tab PO BID #14 tab 09/03/19 Tramadol HCl [Ultram] 50 mg PO Q6H PRN #15 tab 09/03/19 Azithromycin Tab [Zithromax Tab] 250 mg PO DAILY #6 tab 10/11/19 Ondansetron [Ondansetron Odt] 4 mg PO Q6H #12 tab 02/06/20 Review of Systems - Review of Systems Constitutional: States: see HPI, malaise. Denies: chills, fever, weakness EENTM: States: no symptoms reported. Denies: eye pain, blurred vision, double vision Respiratory: States: see HPI, cough. Denies: short of breath, wheezing Cardiology: States: no symptoms reported. Denies: chest pain, palpitations, syncope Genitourinary: States: no symptoms reported. Denies: dysuria, frequency Musculoskeletal: States: no symptoms reported. Denies: back pain, neck pain Skin: States: no symptoms reported. Denies: change in color, rash Neurological: Denies: tingling, tremors, weakness Endocrine: States: no symptoms reported. Denies: increased hunger, increased thirst, increased urine Hematologic/Lymphatic: States: no symptoms reported. Denies: blood clots, easy bleeding All other Systems: Reviewed and Negative Past Medical History (General) - Patient Medical History Hx Seizures: No Hx Stroke: No Hx Dementia: No Hx Asthma: No Hx of COPD: No Hx Cardiac Disorders: No Hx Congestive Heart Failure: No Hx Pacemaker: No Hx Hypertension: No Hx Thyroid Disease: No Hx Diabetes: No Hx Gastroesophageal Reflux: No Hx Renal Disease: No Hx Cancer: No Hx of HIV: No Hx Hepatitis C: No Hx MRSA: No - Vaccination History Hx Tetanus, Diphtheria Vaccination: Yes Hx Influenza Vaccination: Yes Hx Pneumococcal Vaccination: Yes - Social History Hx Tobacco Use: Yes Hx Chewing Tobacco Use: No Hx Alcohol Use: No Hx Substance Use: No Hx Substance Use Treatment: No Hx Depression: No Hx Physical Abuse: No Hx Emotional Abuse: No Hx Suspected Abuse: No Family Medical History - Family History Father Family History: No Known Living Status: Still Living Hx Cardiac Disease: Yes - dad Hx Family Diabetes: Yes - dad Physical Exam - Physical Exam General Appearance: Alert, Anxious, Obvious distress, Well Developed, Well Groomed, Well Hydrated, Well Nourished Eye Exam: bilateral normal Ears, Nose, Throat: hearing grossly normal, normal ENT inspection, normal pharynx - Except for dry mucous membranes Neck: non-tender, full range of motion, supple Respiratory: chest non-tender, lungs clear, normal breath sounds, no respiratory distress, no accessory muscle use Cardiovascular/Chest: normal peripheral pulses, no edema, no gallop, no JVD, no murmur, tachycardia Peripheral Pulses: radial,right: 2+, radial,left: 2+ Gastrointestinal/Abdominal: normal bowel sounds, non tender, soft Back Exam: normal inspection, no CVA tenderness, no vertebral tenderness Extremity: normal range of motion, non-tender, normal inspection 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 02/06/20 10:05 Patient's Covid test is negative. Chest x-ray does not show pneumonia. Strep is negative as is influenza. I believe the patient has a viral upper respiratory tract infection. Plan on discharge home with follow-up with PCP in 5 days if not improved. Patient was off work for the next 3 days and does not need a work note. I discussed this plan of care with the patient he voices understanding and agreement. I will discharge him home with Kaushik ABEBE for his nausea and vomiting. Zach Rogel M.D. #[id number] - Results/Orders Results/Orders: 02/06/20 08:39 RAPID SARS-CoV-2 RNA Stat STREP A SCREEN CULTURE Stat Laboratory Results - last 24 hr 02/06/20 08:39 Group A Strep Rapid Negative Covid test is negative. Influenza A negative Influenza B negative Study: Single Frontal Radiograph of the Chest. Indication:cough Comparison: October 11, 2019 Impression: Cardiomegaly without failure. The lungs are clear without consolidation, pleural effusion, or pneumothorax. No acute osseous abnormality. Electronically signed by: Gurmeet Jaimes MD 02/06/2020 9:07 AM Departure - Departure Clinical Impression: Viral upper respiratory tract infection with cough, Post-tussive emesis Headache Qualifiers: Headache type: unspecified Headache chronicity pattern: acute headache Intractability: not intractable Qualified Code(s): R51.9 - Headache, unspecified Nausea and vomiting Qualifiers: Vomiting type: unspecified Vomiting Intractability: non-intractable Qualified Code(s): R11.2 - Nausea with vomiting, unspecified Time of Disposition: 10:08 Disposition: Discharge to Home or Self Care Condition: Good Departure Forms: ED Discharge - Pt. Copy, Patient Portal Self Enrollment Instructions: DI for Headache, Viral Upper Respiratory Infection, Adult (DC) Diet: resume usual diet Activity: increase activity as tolerated Referrals: TORIBIO MAC [Primary Care Provider] - 1-5 Days Prescriptions: Ondansetron [Ondansetron Odt] 4 mg PO Q6H #12 tab Home Medications: Ambulatory Orders Amoxicillin & Pot Clavulanate [Augmentin Tab] 875 mg PO BID 7 Days #14 tab 1 Naproxen [EC-Naproxen] 500 mg PO Q12HR PRN 10 Days #20 tab 04/16/19 Ondansetron Odt [Zofran ODT] 4 mg PO Q8HR PRN #5 tab 07/27/19 Cephalexin Monohydrate [Keflex] 500 mg PO TID #21 cap 09/03/19 Sulfamethoxazole-Trimethoprim [Bactrim Ds 800-160 mg] 1 tab PO BID #14 tab 09/03/19 Tramadol HCl [Ultram] 50 mg PO Q6H PRN #15 tab 09/03/19 Azithromycin Tab [Zithromax Tab] 250 mg PO DAILY #6 tab 10/11/19 Ondansetron [Ondansetron Odt] 4 mg PO Q6H #12 tab 02/06/20
[2020-02-06 10:28] VITALS: BP 137/93; O2SAT 97
== END 2020-02-06 10:27 | disposition home or self-care (01) ==
LOC: ER 07:58
DX: J06.9 Acute upper respiratory infection, unspecified (principal); R05 Cough; R51.9 Headache, unspecified; R11.2 Nausea with vomiting, unspecified; Z20.828 Contact with and (suspected) exposure to other viral communicable diseases; Z88.5 Allergy status to narcotic agent; Z87.891 Personal history of nicotine dependence
CPT/HCPCS: 71045; 87070; 87502; 87635; 87880; J1885